=== PATIENT | male | born 1940 | race Caucasian/White ===

== ENCOUNTER 2016-12-25 05:09 | Emergency (ER) | payer MEDICARE ==
--- NOTE | 2016-12-25 06:20 | ED NURSING NOTES ---
Clinical Report - Nurses [facility] [address] [place] [address] 12/25/2016 5:12 [id number] TRI[facility] Triage time 05:Dec 25 2016. Acuity: LEVEL 4. Chief Complaint: INJURY TO FOREHEAD. 05:22 12/25/16. SEPSIS SCREEN: Sepsis Screen. Negative (no infection suspected/documented). ASHLYE COMA SCORE: Ashley Coma Scale: 15- eyes open spontaneously (4); best verbal response- oriented x 4 (5); best motor response- obeys commands (6). --05:22 Anel Montilla R.N. 05:16 12/25/16. BP: 135/72 (regular adult cuff) taken on the left arm, while sitting. HR: 80. RR: 18. O2 saturation: 98%. Temp: 98.3 F (oral). Pain level now: 09/09. --05:22 Anel Montilla R.N. Weight: 102 kg stated. Height/Length: 72 inches Per Patient. BMI: 30.5. --05:21 Anel Montilla R.N. Medications BP MED . --05:18 Anel Montilla R.N. Glucosamine Oral. --05:19 Anel Montilla R.N. Allergies No Known Drug Allergy. --05:19 Anel Montilla R.N. History Arrived by private vehicle. Historian: patient. Accompanied by family. This occurred just prior to arrival. Occurred at home. He sustained a laceration from a fall. 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 PAST MEDICAL HX: Hypertension. Tetanus status: unknown. SOCIAL HX: Heavy tobacco smoker (cigarette)- less than 1 pack per day. Heavy alcohol use; consumes 12-pack of beer. No drug use. No infectious disease exposure. ABUSE ASSESSMENT: No report of abuse. --05:22 Anel Montilla R.N. PROBLEMS: Hypertension. --05:19 Anel Montilla R.N. ADDITIONAL SURGERIES: no known surgeries. Interventions ID band on patient. To treatment room. --05:22 Anel Montilla R.N. PHYSICAL ASSESSMENT 05:25 12/25/16. Ambulatory to room. GENERAL / NEURO / PSYCH: Alert. Oriented X 4. Appears in no acute distress. HEENT: Head: signs of head trauma present in the right forehead. Right frontal area: tenderness, swelling, superficial abrasion and subcutaneous 4.0 cm laceration with controlled bleeding ([id number] above right eye, 2cm x 1cm posterior). Pupils equal, round and reactive to light. EOM intact. Mouth within normal limits upon inspection. Voice within normal limits. No nasal injury noted. No dental injury noted. Mucous membranes are pink. RESPIRATORY: Respirations not labored. CVS: Capillary refill less than 2 seconds. BACK: No neck or back tenderness. ROM normal to the neck and back. SKIN: Skin is warm. --05:25 Anel Montilla R.N. NURSING PROGRESS NOTES 05:25 12/25/16. The plan of care for this patient has been created. Head of bed elevated. Reassurance given. Two patient identifiers checked. Call light placed in reach. Side rails up x 1. Bed placed in lowest position. Brakes of bed on. Patient ready for evaluation- chart flagged and ED physician notified. --05:25 Anel Montilla R.N. 05:25 12/25/16. ( Physician in with patient, at patients bedside.). --05:25 Anel Montilla R.N. 05:35 12/25/2016 TDAP IM 0.5 mL given. (Lot#: [id number], expiration date: 05/07/2018, Ctrs: sanofi pasteur). Given in the left deltoid. Allergies verified and confirmed 5 rights. Vaccine information statement provided to the patient. --05:45 Anel Montilla R.N. 05:59 12/25/16. ( Physician just finished suturing patients forehead). --05:59 Anel Montilla R.N. 06:00 12/25/2016 Lidocaine Injection Injectable 2 % given. Allergies verified and confirmed 5 rights. (given to physician at bedside). --06:04 Rafael Reid R.N. 06:03 12/25/16 late entry -. ( Physician is now working on other lac to forehead.). --06:10 Anel Montilla R.N. DISPOSITION / DISCHARGE 06:39 12/25/16. Departure time: 06:Dec 25 2016. Condition at departure: improved. No learning barriers present. Discharge instructions provided and reviewed with the patient. Reviewed wound care instructions. Patient and spouse verbalized understanding. Written instructions provided in Comoran. The patient was discharged by the physician. He was discharged home and accompanied by spouse. He left the Emergency Department ambulatory and via private vehicle. Spouse driving. --06:39 Anel Montilla R.N. 06:38 12/25/16. BP: 136/70 (regular adult cuff) taken on the left arm. HR: 63. RR: 16. O2 saturation: 97% on room air. Temp: 98.3 F (oral). Pain level now: 09/09. --06:39 Anel Montilla R.N. Locked/Released at 12/25/2016 6:40 by Anel Montilla R.N.
--- NOTE | 2016-12-25 06:20 | ED CLINICAL REPORT ---
Clinical Report - Physicians/Mid Levels [facility] [address] [place] [address] 12/25/2016 5:12 Patient: LORETA GARCIA Time Seen: 05:15; initial patient contact. Arrived- By private vehicle. Historian- patient. HISTORY OF PRESENT ILLNESS Location of injuries- head. Chief Complaint: INJURY TO HEAD. The injury occurred just prior to arrival. Occurred at home. Fell out of bed and landed on a hard surface. The patient complains of mild pain. The patient sustained a blow to the head. No neck pain or loss of consciousness. Not dazed. REVIEW OF SYSTEMS No nausea, weakness, loss of vision or vomiting. All systems otherwise negative, except as recorded above. PAST HISTORY Hypertension. Last tetanus immunization greater than 5 years ago. Surgeries: No history of previous surgery. Additional Surgeries: no known surgeries. Medications: Glucosamine Oral. BP MED . Allergies: No Known Drug Allergy. SOCIAL HISTORY Current every day smoker. Heavy alcohol use. No drug use. ADDITIONAL NOTES The nursing notes have been reviewed. PHYSICAL EXAM Vital Signs: 12/25/2016 05:16 BP: 135/72. HR: 80. RR: 18. O2 saturation: 98%. Temp: 98.3 F. Pain level now: 2/10. Have been reviewed as normal. Appearance: Alert. No acute distress. Head: Forehead: subcutaneous laceration of the upper right side of the forehead. SEE LACERATION PROCEDURE NOTE #1 and #2. Eyes: Pupils equal, round and reactive to light. EOM intact. ENT: No dental injury. Neck: Painless ROM. Neck non-tender. Skin: Skin warm and dry. PROGRESS AND PROCEDURES Laceration Repair: Time: 06:17. Location: forehead. Per protocol, time-out completed immediately before the procedure. Length: greater than 8.0cm. Complexity: intermediate (layer closure). Wound depth/shape- curved and involving muscle. Wound is clean. Distal neuro/vascular/tendon status normal. Local anesthesia provided using 2% lidocaine. Prepped with Hibiclens. Wound explored, irrigated and examined to the base in bloodless field extensively with normal saline. Closure of skin: interrupted 5-0 Prolene (10 sutures). Subcutaneous closure: interrupted 4-0 Vicryl (5 sutures). Post-procedure: he is stable and there are no complications. Bleeding is controlled and neuro-vascular status is intact distal to the wound. Dressing applied. Tetanus immunization given. Estimated blood loss: 10 mL. Laceration Repair #2: Time: 06:19. Per protocol, time-out completed immediately before the procedure. Location: forehead. Length: 5 cm. Complexity: simple (local anesthesia used and sutured). Wound depth/shape- curved and subcutaneous. Wound is clean. Neuro/vascular/tendon status: sensory deficit present distally. Anesthesia provided using 2% lidocaine. Prepped with Hibiclens. Wound explored, irrigated and examined to the base in bloodless field extensively with normal saline. Closure of skin: 5-0 Prolene (7 sutures). Post-procedure: he is stable and there are no complications. Bleeding is controlled and neuro-vascular status is intact distal to the wound. Dressing applied. Tetanus immunization given. Estimated blood loss: 3 mL. Disposition: Discharged home in good and improved condition. Condition: good. CLINICAL IMPRESSION Multiple deep lacerations to the forehead. Complicated repair. Treatment of laceration not delayed. No infection or foreign body present. INSTRUCTIONS Protect wound and keep wound area clean. You may wash wounds briefly, then dry. Apply bacitracin twice daily. Sutures should be removed in five days. Your Current Medications: CONTINUE TAKING THE FOLLOWING MEDICATIONS: BP MED *. Glucosamine Oral. Follow-up: Follow up with your doctor in five days for suture removal. Call for an appointment. Blood pressure screening was not performed during this visit because the patient has an active diagnosis of hypertension. (Electronically signed by Loreta Hernandez Dr. 12/25/2016 6:36)
--- NOTE | 2016-12-25 06:20 | ED NURSING NOTES ---
Clinical Report - Nurses [facility] [address] [place] [address] 12/25/2016 5:12 [id number] Triage time 05:Dec 25 2016. Acuity: LEVEL 4. Chief Complaint: INJURY TO FOREHEAD. 05:22 12/25/16. SEPSIS SCREEN: Sepsis Screen. Negative (no infection suspected/documented). ASHLEY COMA SCORE: Ashley Coma Scale: 15- eyes open spontaneously (4); best verbal response- oriented x 4 (5); best motor response- obeys commands (6). --05:22 Anel Montilla R.N. 05:16 12/25/16. BP: 135/72 (regular adult cuff) taken on the left arm, while sitting. HR: 80. RR: 18. O2 saturation: 98%. Temp: 98.3 F (oral). Pain level now: 09/09. --05:22 Anel Montilla R.N. Weight: 102 kg stated. Height/Length: 72 inches Per Patient. BMI: 30.5. --05:21 Anel Montilla R.N. Medications BP MED . --05:18 Anel Montilla R.N. Glucosamine Oral. --05:19 Anel Montilla R.N. Allergies No Known Drug Allergy. --05:19 Anel Montilla R.N. History Arrived by private vehicle. Historian: patient. Accompanied by family. This occurred just prior to arrival. Occurred at home. He sustained a laceration from a fall. 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 PAST MEDICAL HX: Hypertension. Tetanus status: unknown. SOCIAL HX: Heavy tobacco smoker (cigarette)- less than 1 pack per day. Heavy alcohol use; consumes 12-pack of beer. No drug use. No infectious disease exposure. ABUSE ASSESSMENT: No report of abuse. --05:22 Anel Montilla R.N. PROBLEMS: Hypertension. --05:19 Anel Montilla R.N. ADDITIONAL SURGERIES: no known surgeries. Interventions ID band on patient. To treatment room. --05:22 Anel Montilla R.N. PHYSICAL ASSESSMENT 05:25 12/25/16. Ambulatory to room. GENERAL / NEURO / PSYCH: Alert. Oriented X 4. Appears in no acute distress. HEENT: Head: signs of head trauma present in the right forehead. Right frontal area: tenderness, swelling, superficial abrasion and subcutaneous 4.0 cm laceration with controlled bleeding ([id number] above right eye, 2cm x 1cm posterior). Pupils equal, round and reactive to light. EOM intact. Mouth within normal limits upon inspection. Voice within normal limits. No nasal injury noted. No dental injury noted. Mucous membranes are pink. RESPIRATORY: Respirations not labored. CVS: Capillary refill less than 2 seconds. BACK: No neck or back tenderness. ROM normal to the neck and back. SKIN: Skin is warm. --05:25 Anel Montilla R.N. NURSING PROGRESS NOTES 05:25 12/25/16. The plan of care for this patient has been created. Head of bed elevated. Reassurance given. Two patient identifiers checked. Call light placed in reach. Side rails up x 1. Bed placed in lowest position. Brakes of bed on. Patient ready for evaluation- chart flagged and ED physician notified. --05:25 Anel Montilla R.N. 05:25 12/25/16. ( Physician in with patient, at patients bedside.). --05:25 Anel Montilla R.N. 05:35 12/25/2016 TDAP IM 0.5 mL given. (Lot#: [id number], expiration date: 05/07/2018, Sloop Captain: sanofi pasteur). Given in the left deltoid. Allergies verified and confirmed 5 rights. Vaccine information statement provided to the patient. --05:45 Anel Montilla R.N. 05:59 12/25/16. ( Physician just finished suturing patients forehead). --05:59 Anel Montilla R.N. 06:00 12/25/2016 Lidocaine Injection Injectable 2 % given. Allergies verified and confirmed 5 rights. (given to physician at bedside). --06:04 Rafael Reid R.N. 06:03 12/25/16 late entry -. ( Physician is now working on other lac to forehead.). --06:10 Anel Montilla R.N. DISPOSITION / DISCHARGE 06:39 12/25/16. Departure time: 06:Dec 25 2016. Condition at departure: improved. No learning barriers present. Discharge instructions provided and reviewed with the patient. Reviewed wound care instructions. Patient and spouse verbalized understanding. Written instructions provided in Israeli. The patient was discharged by the physician. He was discharged home and accompanied by spouse. He left the Emergency Department ambulatory and via private vehicle. Spouse driving. --06:39 Anel Montilla R.N. 06:38 12/25/16. BP: 136/70 (regular adult cuff) taken on the left arm. HR: 63. RR: 16. O2 saturation: 97% on room air. Temp: 98.3 F (oral). Pain level now: 09/09. --06:39 Anel Montilla R.N. Locked/Released at 12/25/2016 6:40 by Anel Montilla R.N.
--- NOTE | 2016-12-25 06:20 | ED ORDER SUMMARY ---
..... Patient: ROMEO GARCIA OrderSheet [facility] VisitID: [id number] [address] [place] [address] 76y, M Registration Date/Time: 12/25/2016 ORDER SHEET Weight: 102.0 kg (stated) Allergies: No Known Drug Allergy GENERAL ORDERS: Suture Set-up: (05:20 12/25/2016 Nir Red) (5:26 Hoas R.N.) MEDICATION ORDERS: Tdap IM 0.5 mL (NOW, per protocol) (05:20 12/25/2016 Nir Red) (Ack 5:26 Hoas R.N.) (5:45 Hoas R.N.) Lidocaine Injection 2 % (soln) (NOW, place at bedside) (06:03 12/25/2016 Kerwin R.Duy verbal order read back to Nir Red) (6:04 Layos R.N.) IV FLUIDS: ORDER SHEET NOTES: [Electronically signed by Romeo Hernandez Dr. (06:36 12/25/2016)] [Electronically signed by Anel Montilla R.N. (06:40 12/25/2016)] [Electronically locked/signed by Anel Montilla R.N. (06:40 12/25/2016)]
--- NOTE | 2016-12-25 06:20 | ED ORDER SUMMARY ---
..... Patient: ROMEO GARCIA OrderSheet [facility] VisitID: [id number] [address] [place] [address] 76y, M Registration Date/Time: 12/25/2016 ORDER SHEET Weight: 102.0 kg (stated) Allergies: No Known Drug Allergy GENERAL ORDERS: Suture Set-up: (05:20 12/25/2016 Nir Red) (5:26 Hoas R.N.) MEDICATION ORDERS: Tdap IM 0.5 mL (NOW, per protocol) (05:20 12/25/2016 Nir Red) (Ack 5:26 Hoas R.N.) (5:45 Hoas R.N.) Lidocaine Injection 2 % (soln) (NOW, place at bedside) (06:03 12/25/2016 Kerwin R.Duy verbal order read back to Nir Red) (6:04 Layos R.N.) IV FLUIDS: ORDER SHEET NOTES: [Electronically signed by Romeo Hernandez Dr. (06:36 12/25/2016)] [Electronically signed by Anel Montilla R.N. (06:40 12/25/2016)] [Electronically locked/signed by Anel Montilla R.N. (06:40 12/25/2016)]
--- NOTE | 2016-12-25 06:41 | ED MAR SUMMARY ---
..... Medication Administration Record [facility] [address] [place] [address] Patient: LORETA GARCIA Visit ID: [id number] 76y, M Weight: 102.0 kg Height/Length: 72 in BMI: 30.5 ALLERGIES: No Known Drug Allergy Given 05:35 12/25/2016 Anel Montilla RNickolas Medication Administered: TDAP [IM], Dose: 0.5 mL IM. Medication Ordered: Tdap IM 0.5 mL (NOW, per protocol). Given 06:00 12/25/2016 Rafael Reid RAllyNAlly Medication Administered: LIDOCAINE [INJECTION], Dose: 2 % Injectable Injection. Medication Ordered: Lidocaine Injection 2 % (soln) (NOW, place at bedside).
--- NOTE | 2016-12-25 06:41 | ED DISCHARGE INSTRUCTIONS ---
Patient: LORETA GARCIA General Instructions [facility] VisitID: [id number] [place] [address] 76y, M Registration Date/Time: 12/25/2016 Multiple deep lacerations to the forehead. Complicated repair. Treatment of laceration not delayed. No infection or foreign body present. INSTRUCTIONS Protect wound and keep wound area clean. You may wash wounds briefly, then dry. Apply bacitracin twice daily. Sutures should be removed in five days. Your Current Medications: CONTINUE TAKING THE FOLLOWING MEDICATIONS: BP MED *. Glucosamine Oral. Follow-up: Follow up with your doctor in five days for suture removal. Call for an appointment. Blood pressure screening was not performed during this visit because the patient has an active diagnosis of hypertension. ADDITIONAL INFORMATION Laceration (All Closures) Alaceration is a cut through the skin. This will usually require stitches (sutures) or carol if it is deep. Minor cuts may be treated with a surgical tape closure orskin glue. Home care The following guidelines will help you care for your laceration at home: Extremity, face, or trunk wounds Keep the wound clean and dry. If a bandage was applied and it becomes wet or dirty, replace it. Otherwise, leave it in place for the first 24 hours. If stitches or carol were used, clean the wound daily. After removing the bandage, wash the area with soap and water. Use a wet cotton swab to loosen and remove any blood or crust that forms. The doctor may prescribe an antibiotic cream or ointment to prevent infection. Do not stop taking this medication until you have finished the prescribed course or the doctor tells you to stop. The doctor may also prescribe medications for pain. Follow the doctors instructions for taking these medications. You may remove the bandage to shower as usual after the first 24 hours, but do not soak the area in water (no swimming) until the stitches or carol are removed. If surgical tape was used, keep the area clean and dry. If it becomes wet, blot it dry with a towel. If skin glue was used, do not scratch, rub, or pick at the adhesive film. Do not place tape directly over the film. Do not apply liquid, ointment, or creams to the wound while the film is in place. Do not clean the wound with peroxide and do not apply ointments. Avoid activities that cause heavy sweating until the film has fallen off. Protect the wound from prolonged exposure to sunlight or tanning lamps. You may shower as usual but do not soak the wound in water (no baths or swimming). The film will fall off by itself in 510 days. Scalp wounds During the first two days, you may carefully rinse your hair in the shower to remove blood, glass or dirt particles. After two days, you may shower and shampoo your hair normally. Do not soak your scalp in the tub or go swimming until the stitches or carol have been removed. Talk with your doctor before applying any antibiotic ointment to the wound. Mouth wounds Eat soft foods to reduce pain. If the cut is inside of your mouth, clean by rinsing after each meal and at bedtime with a mixture of equal parts water and hydrogen peroxide (do not swallow!). Or, you can use a cotton swab to directly apply hydrogen peroxide onto the cut. Mouth wounds can be painful when eating. You may use an [id number] local numbing solution for pain relief. If this is not available, you may use any numbing solution for teething babies. You may apply this directly to the sores with a cotton-tip swab or with your finger. Follow-up care Follow up with your health care provider. Most skin wounds heal within ten days. Mouth and facial wounds heal within five days. However, even with proper treatment, a wound infection may sometimes occur. Therefore, you should check the wound daily for signs of infection listed below. Stitches should be removed from the face within five days; stitches and carol should be removed from other parts of the body within 714 days. If dissolving stitches were used in the mouth, these will fall out or dissolve without the need for removal. If tape closures were used, remove them yourself if they have not fallen off after 7 days. Ifskin glue was used, the film will fall off by itself in 510 days. When to seek medical care Get prompt medical attention if any of these occur: Bleeding not controlled by direct pressure Signs of infection, including increasing pain in the wound, increasing wound redness or swelling, or pus coming from the wound Fever of 100.4F (38C) or higher, or as directed by your health care provider Stitches or carol come apart or fall out or surgical tape falls off before 7 days Wound edges re-open Laceration: Will There Be A Scar? A laceration is a cut through one or more layers of the skin. The goal of emergency treatment is to clean the wound and close it to prevent infection, control bleeding and speed healing. Cuts heal because the body is able to repair the skin by "sealing" the edges together with collagen, a kind of "skin cement." How deep your cut is, its location on your body, your age and the way your skin heals all determine how visible the final scar will be. Some persons tend to heal with more scar tissue than others. This cut will probably heal similar to other cuts you have had in the past. What You Can Do: There are a few simple things that you can do to limit the amount of scar that forms: 1) PREVENT INFECTION: An infected wound makes a bigger scar. Keep the wound clean and dry. Change the dressing and apply any ointment/cream as directed. 2) MASSAGE THE WOUND:After the stitches have been removed: Use a moisturizing cream or lotion containing Aloe or Vitamin E Oil and gently massage the skin around the wound with your fingertips (wash your hands first!). Do this twice a day for the first two weeks, then once a day for a month. This will increase the flow of oxygen and blood to the wound and prevent excess scar tissue from building up. 3) AVOID SUN EXPOSURE: During the first six months, avoid sun exposure since the scar may kennedy a much darker color than the skin around it. When in the sun, use SPF #50 (or greater) sun block on the scar, or cover the area with a hat or clothing. What To Expect: -- The cut will be sealed within 2 days and will be strong within 5-10 days. However, it will take at least SIX MONTHS for it to be fully healed. -- During the FIRST THREE MONTHS, you may notice the scar line getting more red or purple in color. The scar may become raised. The skin around the wound may feel thick and lumpy. -- During the FOURTH TO SIXTH MONTHS, this process begins to reverse. The red and purple color will fade, the scar line flattens, and the skin around it feels more normal. -- In most cases, the way the scar line looks after six months is the way it will remain, although there may be some continued improvement up to one year after the injury. Is There Anything Else That Can Be Done? If you do not like the way the scar looks after six months, a plastic surgeon may be able to perform a "scar revision." If you have any questions or problems as your wound heals, contact your doctor or this facility. We will be glad to assist you. Bandage Change If the bandage becomes wet or dirty, replace it. Otherwise, leave it in place for the first 24 hours. Then once a day: After removing the bandage, wash the area with soap and water. Use a wet cotton swab to loosen and remove any blood or crust that forms on the wound. After cleaning, apply a thin layer of antibiotic ointment or cream. Reapply the bandage. You may shower as usual after the first 24 hours. If the bandage is on an arm or leg, cover it with a plastic bag rubber banded at both ends before showering. No tub baths or swimming until the bandage is removed and the wound healed (at least 7 days). You have been given the following additional information: Laceration, All Laceration, How To Minimize Scar Dressing Change (Electronically signed by Loreta Hernandez Dr. 12/25/2016 6:36)
--- NOTE | 2016-12-25 06:41 | ED MED RECONCILIATION SUMMARY ---
Patient: LORETA GARCIA Medication Reconciliation Report [facility] VisitID: [id number] [address] [place] [address] 76y, M Registration Date/Time: 12/25/2016 Weight: 102.0 kg Height/Length: 72 in. BMI: 30.5 ALLERGIES: No Known Drug Allergy The patient's Home Medications are listed below: CONTINUE TAKING THE FOLLOWING MEDICATIONS: BP MED Glucosamine Oral The source(s) of the original Home Medication information: Not obtained. The following Medications were given to the patient in the Emergency Department: TDAP [IM] IM 0.5 mL, administered: 12/25/2016 5:35:00 AM Lidocaine [Injection] Injection 2 %, administered: 12/25/2016 6:00:00 AM The following Medications were prescribed to the patient: None.
--- NOTE | 2016-12-25 06:41 | ED MAR SUMMARY ---
..... Medication Administration Record [facility] [address] [place] [address] Patient: LORETA GARCIA Visit ID: [id number] 76y, M Weight: 102.0 kg Height/Length: 72 in BMI: 30.5 ALLERGIES: No Known Drug Allergy Given 05:35 12/25/2016 Anel Montilla RNickolas Medication Administered: TDAP [IM], Dose: 0.5 mL IM. Medication Ordered: Tdap IM 0.5 mL (NOW, per protocol). Given 06:00 12/25/2016 Rafael Reid RAllyNAlly Medication Administered: LIDOCAINE [INJECTION], Dose: 2 % Injectable Injection. Medication Ordered: Lidocaine Injection 2 % (soln) (NOW, place at bedside).
--- NOTE | 2016-12-25 06:41 | ED MED RECONCILIATION SUMMARY ---
Patient: LORETA GARCIA Medication Reconciliation Report [facility] VisitID: [id number] [address] [place] [address] 76y, M Registration Date/Time: 12/25/2016 Weight: 102.0 kg Height/Length: 72 in. BMI: 30.5 ALLERGIES: No Known Drug Allergy The patient's Home Medications are listed below: CONTINUE TAKING THE FOLLOWING MEDICATIONS: BP MED Glucosamine Oral The source(s) of the original Home Medication information: Not obtained. The following Medications were given to the patient in the Emergency Department: TDAP [IM] IM 0.5 mL, administered: 12/25/2016 5:35:00 AM Lidocaine [Injection] Injection 2 %, administered: 12/25/2016 6:00:00 AM The following Medications were prescribed to the patient: None.
== END 2016-12-25 06:35 | disposition home or self-care (01) ==
LOC: ED SRH 05:09
PROC: 0JQ10ZZ Repair Face Subcutaneous Tissue and Fascia, Open Approach (ICD-10-PCS; principal; 2016-12-25)
DX: S01.81XA Laceration without foreign body of other part of head, initial encounter (principal); W06.XXXA Fall from bed, initial encounter; Y92.009 Unspecified place in unspecified non-institutional (private) residence as the place of occurrence of the external cause; F17.210 Nicotine dependence, cigarettes, uncomplicated; I10 Essential (primary) hypertension; Z23 Encounter for immunization